=== PATIENT | male | born 2000 | race Caucasian/White ===

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

== ENCOUNTER 2021-10-17 23:18 | Inpatient (IN) | payer OTHER ==
[~2021-10-17] VITALS: Ht 182.9 cm; Wt 64.2 kg
[~2021-10-17 23:18] MED LIST: ABIL1TAB11 PO
[2021-10-18 00:20] LABS: HEMATOCRIT 40.9 % (42.0-52.0); HEMOGLOBIN 14.1 g/dl (13.5-17.5); MEAN CORPUSCULAR HEMOGLOBIN 29.9 pg (27.0-33.0); MEAN CORPUSCULAR HGB CONC 34.5 g/dl (32.0-36.5); MEAN CORPUSCULAR VOLUME 86.7 fl (80.0-96.0); PLATELET COUNT, AUTOMATED 227 10^3/uL (150-450); RED BLOOD COUNT 4.72 10^6/uL (4.30-6.10); WHITE BLOOD COUNT 9.9 10^3/uL (4.0-10.0)
[2021-10-18 00:37] LABS: ACETAMINOPHEN LEVEL < 2.0 UG/ML (10.0-30.0); ALBUMIN 4.2 GM/DL (3.2-5.2); ALT/SGPT 23 U/L (12-78); BILIRUBIN,DIRECT 0.1 MG/DL (0.0-0.2); BILIRUBIN,TOTAL 0.4 MG/DL (0.2-1.0); BLOOD UREA NITROGEN 12 MG/DL (7-18); CARBON DIOXIDE LEVEL 26 MEQ/L (21-32); CHLORIDE LEVEL 106 MEQ/L (98-107); CREATININE FOR GFR 1.05 MG/DL (0.70-1.30); ETHYL ALCOHOL (ETHANOL) < 0.003 % (0.000-0.010); GLUCOSE, FASTING 94 MG/DL (70-100); POTASSIUM SERUM 3.7 MEQ/L (3.5-5.1); SALICYLATE LEVEL < 1.7 MG/DL (5.0-30.0); SODIUM LEVEL 140 MEQ/L (136-145); TOTAL PROTEIN 7.1 GM/DL (6.4-8.2)
[2021-10-18 00:49] LABS: AMPHETAMINES LEVEL URINE NEGATIVE (NEGATIVE); BARBITURATES URINE NEGATIVE (NEGATIVE); BENZODIAZEPINES URINE NEGATIVE (NEGATIVE); CANNABINOIDS URINE POSITIVE (NEGATIVE); COCAINE METABOLITE URINE NEGATIVE (NEGATIVE); METHADONE URINE NEGATIVE (NEGATIVE); OPIATES URINE NEGATIVE (NEGATIVE); PHENCYCLIDINE URINE NEGATIVE (NEGATIVE)
[2021-10-18] MEDS ORDERED: MAALOX 30 ML SUSP *UDC PO PRN (06:10)
[2021-10-18] MEDS ORDERED: OLANZapine ORAL DISINTEGRATING TAB 5MG PO PRN (06:10)
[2021-10-18] MEDS ORDERED: MOM 30ML SUSPENSION UDC PO PRN (06:10)
[2021-10-18] MEDS ORDERED: traZODone 50 MG TAB PO PRN (06:10)
[2021-10-18] MEDS ORDERED: ACETAMINOPHEN TAB 650MG DOSE (2X325MG) PO PRN (06:10)
[2021-10-18] MEDS ORDERED: PARO20TA4 PO (08:19)
[2021-10-18] MEDS ORDERED: PROP10TA56 PO (08:19)
[2021-10-18] MEDS ORDERED: SERO200T PO (08:19)
[2021-10-18] MEDS ORDERED: HOME MED LIST COMPLETE! XX SCH (08:20)
[2021-10-18 09:00] VITALS: BP 130/78
[2021-10-18] MEDS: VENLAFAXINE **XR** 37.5 MG CAPSULE PO SCH (16:09)
[2021-10-18] MEDS: PROPRANOLOL 10 MG TAB PO SCH ×2 (16:09→20:21)
[2021-10-18 18:18] VITALS: BP 147/71
[2021-10-18] MEDS: QUEtiapine FUMARATE 200 MG TAB PO SCH (20:21)
[2021-10-19 06:49] VITALS: BP 133/61
[2021-10-19] MEDS: PROPRANOLOL 10 MG TAB PO SCH ×3 (08:05→20:17)
[2021-10-19] MEDS: VENLAFAXINE **XR** 37.5 MG CAPSULE PO SCH (08:05)
[2021-10-19] MEDS: NICOTINE 21MG/24HR 1 EA TRANSDERMAL TD SCH (10:11)
[2021-10-19 17:50] VITALS: BP 154/68
[2021-10-19] MEDS: QUEtiapine FUMARATE 200 MG TAB PO SCH (20:17)
[2021-10-20 06:47] VITALS: BP 113/55
[2021-10-20] MEDS: PROPRANOLOL 10 MG TAB PO SCH ×3 (08:06→20:23)
[2021-10-20] MEDS: VENLAFAXINE **XR** 37.5 MG CAPSULE PO SCH (08:07)
[2021-10-20] MEDS: NICOTINE 21MG/24HR 1 EA TRANSDERMAL TD SCH (08:07)
[2021-10-20 17:50] VITALS: BP 121/64
[2021-10-20] MEDS: QUEtiapine FUMARATE 200 MG TAB PO SCH (20:23)
[2021-10-21 06:24] VITALS: BP 109/59
[2021-10-21] MEDS: VENLAFAXINE **XR** 75MG CAPSULE PO SCH (08:02)
[2021-10-21] MEDS: PROPRANOLOL 10 MG TAB PO SCH ×3 (08:02→20:20)
[2021-10-21] MEDS: NICOTINE 21MG/24HR 1 EA TRANSDERMAL TD SCH (08:03)
[2021-10-21 18:20] VITALS: BP 132/68
[2021-10-21] MEDS: QUEtiapine FUMARATE 200 MG TAB PO SCH (20:20)
[2021-10-22 06:14] VITALS: BP 102/53
[2021-10-22] MEDS: NICOTINE 14 MG/24 HR TRANSDERMAL TD SCH (08:41)
[2021-10-22] MEDS: VENLAFAXINE **XR** 75MG CAPSULE PO SCH (08:41)
[2021-10-22] MEDS: PROPRANOLOL 10 MG TAB PO SCH ×3 (08:41→20:43)
[2021-10-22] MEDS: hydrOXYzine 50 MG TAB PO SCH ×3 (09:28→20:43)
[2021-10-22 16:43] VITALS: BP 141/73
[2021-10-22] MEDS: QUEtiapine FUMARATE 200 MG TAB PO SCH (20:43)
[2021-10-23] MEDS: hydrOXYzine 50 MG TAB PO SCH ×4 (02:51→21:21)
[2021-10-23 06:33] VITALS: BP 124/64
[2021-10-23] MEDS: NICOTINE 14 MG/24 HR TRANSDERMAL TD SCH (08:09)
[2021-10-23] MEDS: VENLAFAXINE **XR** 75MG CAPSULE PO SCH (08:12)
[2021-10-23] MEDS: PROPRANOLOL 10 MG TAB PO SCH ×3 (08:12→21:21)
[2021-10-23 18:40] VITALS: BP 129/73
[2021-10-23] MEDS: QUEtiapine FUMARATE 200 MG TAB PO SCH (21:22)
[2021-10-24] MEDS: hydrOXYzine 50 MG TAB PO SCH ×4 (03:00→21:00)
[2021-10-24 07:08] VITALS: BP 113/54
[2021-10-24] MEDS: VENLAFAXINE **XR** 75MG CAPSULE PO SCH (08:47)
[2021-10-24] MEDS: NICOTINE 14 MG/24 HR TRANSDERMAL TD SCH (08:48)
[2021-10-24] MEDS: PROPRANOLOL 10 MG TAB PO SCH ×3 (08:48→21:00)
[2021-10-24 15:34] VITALS: BP 134/87
[2021-10-24] MEDS: QUEtiapine FUMARATE 200 MG TAB PO SCH (21:01)
[2021-10-25] MEDS: hydrOXYzine 50 MG TAB PO SCH ×4 (03:00→20:42)
[2021-10-25 07:21] VITALS: BP 132/60
[2021-10-25] MEDS: VENLAFAXINE **XR** 75MG CAPSULE PO SCH (08:38)
[2021-10-25] MEDS: PROPRANOLOL 10 MG TAB PO SCH ×3 (08:38→20:42)
[2021-10-25] MEDS: NICOTINE 14 MG/24 HR TRANSDERMAL TD SCH (08:39)
[2021-10-25 17:21] VITALS: BP 122/63
[2021-10-25] MEDS ORDERED: QUEtiapine FUMARATE 100 MG TAB PO SCH (21:00)
[2021-10-25] MEDS ORDERED: traZODone 50 MG TAB PO SCH (21:00)
[2021-10-26] MEDS: hydrOXYzine 50 MG TAB PO SCH ×2 (03:00→08:13)
[2021-10-26 06:04] VITALS: BP 127/60
[2021-10-26] MEDS: NICOTINE 14 MG/24 HR TRANSDERMAL TD SCH (08:13)
[2021-10-26] MEDS: VENLAFAXINE **XR** 75MG CAPSULE PO SCH (08:13)
[2021-10-26 08:14] VITALS: BP 128/68
[2021-10-26] MEDS: PROPRANOLOL 10 MG TAB PO SCH (08:14)
[2021-10-26] MEDS ORDERED: SERO1TAB2 PO (10:26)
[2021-10-26] MEDS ORDERED: NICO14PA TD (10:26)
[2021-10-26] MEDS ORDERED: HYDR50TA70 PO (10:26)
[2021-10-26] MEDS ORDERED: PROP10TA56 PO (10:26)
[2021-10-26] MEDS ORDERED: VENL75CA47 PO (10:28)
[2021-10-26] MEDS ORDERED: TRAZ-252 PO (10:28)
== END 2021-10-26 13:04 | disposition home or self-care (01) | DRG 885 ==
LOC: M ED 23:18 → M ED INP 10-18 06:10 → M PSY 10-18 08:34
PROVIDERS: ADMIT Student in an Organized Health Care Education/Training Program; ATTEND Student in an Organized Health Care Education/Training Program
DX: F33.1 Major depressive disorder, recurrent, moderate (principal); R45.851 Suicidal ideations; F12.90 Cannabis use, unspecified, uncomplicated; F17.200 Nicotine dependence, unspecified, uncomplicated; F41.9 Anxiety disorder, unspecified; Z79.899 Other long term (current) drug therapy; F43.10 Post-traumatic stress disorder, unspecified; J45.909 Unspecified asthma, uncomplicated; F34.1 Dysthymic disorder

== ENCOUNTER 2022-05-28 06:51 | Emergency (ER) | payer OTHER ==
[~2022-05-28] VITALS: Ht 182.9 cm; Wt 73.3 kg
[~2022-05-28 06:51] MED LIST changes: +HYDR50TA70 PO; +NICO14PA TD; +PARO20TA4 PO; +PROP10TA56 PO; +SERO1TAB2 PO; +SERO200T PO; +TRAZ-252 PO; +VENL75CA47 PO
[2022-05-28 08:57] VITALS: BP 118/64
== END 2022-05-28 09:10 | disposition home or self-care (01) ==
LOC: M ED 06:51
DX: S93.401A Sprain of unspecified ligament of right ankle, initial encounter (principal); W18.30XA Fall on same level, unspecified, initial encounter; Y92.9 Unspecified place or not applicable; Y93.9 Activity, unspecified; Y99.9 Unspecified external cause status